=== PATIENT | female | born 1980 | race Caucasian/White ===

== ENCOUNTER → 2016-10-31 | Outpatient (CLI) | payer OTHER ==
[~2016-10-31] MED LIST: IRON325 MG PO
== END | disposition home or self-care (01) ==
LOC: CDC 15:18
DX: E66.01 Morbid (severe) obesity due to excess calories (principal)
CPT/HCPCS: 93000

== ENCOUNTER 2016-12-26 22:39 | Inpatient (IN) | payer OTHER ==
[~2016-12-26] VITALS: Ht 167.6 cm; Wt 170.0 kg
[~2016-12-26 22:39] MED LIST changes: +BUPROPION XL300 MG PO; +DAILY MULTIPLE1 EACH PO; +IRON325 M1 PO
[2016-12-27 13:56] VITALS: BP 112/63
[2016-12-27 21:30] VITALS: BP 131/69
[2016-12-27 23:09] VITALS: BP 167/79
[2016-12-27 23:19] LABS: POINT-OF-CARE METER ID UU14208750
[2016-12-28 03:14] VITALS: BP 128/66
[2016-12-28 06:19] LABS: POINT-OF-CARE METER ID UU14208750
[2016-12-28 07:10] VITALS: BP 121/62
[2016-12-28 11:23] VITALS: BP 121/72
[2016-12-28 11:25] LABS: POINT-OF-CARE METER ID UU14162508
[2016-12-28 17:46] LABS: POINT-OF-CARE METER ID UU14162508
[2016-12-28 18:53] VITALS: BP 138/88
== END 2016-12-28 19:56 | disposition home or self-care (01) | DRG 621 ==
LOC: ENRESERV 22:39 → 2SOUTH 12-27 09:38 → 2EAST 12-27 13:17 → ENRESERV 12-27 17:54 → 2EAST 12-27 21:14
PROVIDERS: Surgery
PROC: 0DB64Z3 Excision of Stomach, Percutaneous Endoscopic Approach, Vertical (ICD-10-PCS; principal; 2016-12-27)
DX: E66.01 Morbid (severe) obesity due to excess calories (principal); K66.0 Peritoneal adhesions (postprocedural) (postinfection); F32.9 Major depressive disorder, single episode, unspecified; Z68.44 Body mass index [BMI] 60.0-69.9, adult; I99.8 Other disorder of circulatory system
CPT/HCPCS: 82948; C9113; J0360; J0690; J1100; J1170; J1644; J1650; J1815; J1885; J2001; J2405; J2710; J2765; J2795; J3010; J3475; J3480; J7120; Q0175; S0020